=== PATIENT | female | born 1985 | race Two or more races ===

== ENCOUNTER 2016-06-09 17:32 | Inpatient (IN) | payer OTHER ==
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
[2016-06-09 22:24] LABS: BASO % 0.4 % (0.0-2.0); EOS % 0.7 % (0.0-4.0); HEMATOCRIT 38.7 % (34.0-47.0); LYMPH % 30.6 % (20.0-40.0); MEAN CELL VOLUME 84.2 fl (81.0-99.0); MEAN CORPUSCULAR HEMOGLOBIN 27.9 pg (27.0-31.0); MEAN CORPUSCULAR HGB CONC 33.1 g/dL (33.0-37.0); MEAN PLATELET VOLUME 7.7 fl (7.2-11.7); MONO # 0.4 K/uL (0.0-0.8); MONO % 5.7 % (0.0-10.0); NEUT # 4.2 K/uL (1.8-7.0); NEUT % 62.6 % (50.0-75.0); NRBC % 0.2 % (0.0-0.0); WHITE BLOOD COUNT 6.7 K/uL (4.8-10.8)
[2016-06-09 22:42] LABS: ALB/GLOB RATIO 1.3 (1.0-2.1); ALCOHOL SERUM < 10 mg/dl (0-10); ALKALINE PHOSPHATASE 61 U/L (38-126); AST/SGOT 30 U/L (14-36); BILIRUBIN,TOTAL 0.6 mg/dl (0.2-1.3); BLOOD UREA NITROGEN 9 mg/dl (7-17); CALCIUM 9.1 mg/dL (8.4-10.2); CARBON DIOXIDE 22 mmol/L (22-30); CHLORIDE 108 mmol/L (98-107); GFR AFRICAN-AMERICAN > 60; GLUCOSE,RANDOM 75 mg/dL (65-105); SODIUM 144 mmol/l (132-148); TOTAL PROTEIN 7.4 G/DL (6.3-8.2)
[2016-06-09 22:43] LABS: ALT/SGPT < 6 U/L (9-52)
[2016-06-10 03:38] LABS: RBC URINE < 1 /hpf (0-3); URINE BILIRUBIN NEGATIVE (NEGATIVE); URINE BLOOD SMALL (NEGATIVE); URINE COLOR STRAW (YELLOW); URINE GLUCOSE (UA) NEG (Normal); URINE KETONE NEGATIVE (NEGATIVE); URINE LEUKOCYTE ESTERASE NEG Leu/uL (Negative); URINE PROTEIN NEGATIVE (NEGATIVE); URINE UROBILINOGEN 0.2-1.0 mg/dL (0.2-1.0); WBC URINE < 1 /hpf (0-5)
--- NOTE | 2016-06-10 06:02 | ED PDOC ---
- Laboratory Results Result Diagrams: 06/09/16 22:00 06/09/16 22:00 - ECG O2 Sat by Pulse Oximetry: 99 - Progress ED Course And Treament: Case endorsed to technical proposal writer from John FLOR[place] pending [facility] psychiatric screening 2:00 Patient awake, no distress 4:00 Patient awake, no distress Disposition - Clinical Impression Clinical Impression: PTSD (post-traumatic stress disorder) - POA Present On Arrival: None - Disposition Disposition: Transfer of Care Disposition Time: 05:58 Condition: STABLE Patient Signed Over To: Tyler Malhotra Handoff Comments: pending [facility]
--- NOTE | 2016-06-10 06:04 | ED PDOC ---
- Laboratory Results Result Diagrams: 06/09/16 22:00 06/09/16 22:00 - ECG O2 Sat by Pulse Oximetry: 99 Medical Decision Making Medical Decision Making: Patient s/o from Shaina King PA-C at 0600 pending [facility] screening. Patient s/o to Dr. Cleaning at 0700 pending [facility] screening. Scribe Attestation: Documented by Jamila Rivera acting as a scribe for Tyler Malhotra MD. Provider Scribe Attestation: All medical record entries made by the Scribe were at my direction and personally dictated by me. I have reviewed the chart and agree that the record accurately reflects my personal performance of the history, physical exam, medical decision making, and the department course for this patient. I have also personally directed, reviewed, and agree with the discharge instructions and disposition. Disposition - Clinical Impression Clinical Impression: PTSD (post-traumatic stress disorder) - POA Present On Arrival: None - Disposition Disposition: Transfer of Care Disposition Time: 07:00 Condition: STABLE Patient Signed Over To: Joey Cleainng Handoff Comments: pending [facility] screening
[2016-06-10 07:47] VITALS: O2SAT 97
[2016-06-10] MEDS ORDERED: DiphenhydrAMINE 50 mg/ml Inj IM PRN (10:15)
[2016-06-10] MEDS ORDERED: Magnesium Hydroxide Susp 30 ml UD PO PRN (10:15)
[2016-06-10] MEDS ORDERED: Alum-Mag Hydrox-Simethicone Susp (30 mL) PO PRN (10:15)
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
--- NOTE | 2016-06-10 10:33 | RAD ---
HISTORY: medical exam COMPARISON: No prior. FINDINGS: LUNGS: No active pulmonary disease. PLEURA: No significant pleural effusion identified, no pneumothorax apparent. CARDIOVASCULAR: Normal. OSSEOUS STRUCTURES: Incompletely visualize Medina rods. VISUALIZED UPPER ABDOMEN: Normal. OTHER FINDINGS: None. IMPRESSION: No active disease.
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
--- NOTE | 2016-06-10 20:21 | CARD ---
APPROVED REPORT EKG Measurement Heart [id number] <Conclusion> Normal sinus rhythm Rightward axis Borderline ECG
--- NOTE | 2016-06-11 15:45 | PCM.PYCHPN ---
Psychiatric Progress Note - Psychiatric Progress Note Patient seen today, length of contact: Patient evaluated, case discussed with team, chart reviewed, 35 min Patient Chief Complaint: "I'm feeling better" Problems Identified/Issues Discussed: Patient reports improvement in her mood. She denies ideation to harm herself. She is adamant that she did not attempt to kill herself. She reports good sleep /appetite. She is goal oriented. She has been participating in groups and engages appropriately with staff and peers. Medication Change: No Medical Record Reviewed: Yes Mental Status Examination - Cognitive Function Orientation: Person, Place, Situation, Time Memory: Intact Attention: WNL Concentration: WNL Association: [facility] Fund of Knowledge: [facility] - Mood Mood: Anxious - Affect Affect: Broad (Tearful at times) - Speech Speech: Appropriate - Formal Thought Process Formal Thought Process: No Impairment Psychotic Thoughts and Behaviors: No AH/VH/paranoia/delusions - Suicidal Ideation Suicidal Ideation: No - Homicidal Ideation Homicidal Ideation: No Goal/Treatment Plan - Goal/Treatment Plan Need for Continued Stay: Remain at risks for inpatient hospitalization, Severe depression anxiety Progress Toward Problem(s) and Goals/Treatment Plan: 31 yo female w/ h/o depression, presents after she had an episode of self harm, which she reports was not a suicide attempt, she does report feeling depressed at times, with mood fluctuations, patient likely has MDD. Patient reports that her mood has been improving since being admitted. -Continue Zoloft 50 mg PO Daily, r/b/se reviewed; patient given a handout on Zoloft -Individual, group and milieu tx -Likely discharge on Thursday if patient continues to improve clinically Estimated Date of D/C: 06/13/16 - Smoking Cessation Smoking Cessation Initiated: No Reason for not providing: Not indicated
[2016-06-12 08:26] LABS: CHOLESTEROL 132 mg/dL (0-199)
--- NOTE | 2016-06-12 11:53 | PCM.PYCHPN ---
Psychiatric Progress Note - Psychiatric Progress Note Patient seen today, length of contact: Patient evaluated, case discussed with team, chart reviewed, 35 min Patient Chief Complaint: "I'm feeling better" Problems Identified/Issues Discussed: Patient continues to report improvement in mood. She denies ideation to harm herself. She reports good sleep/appetite. She is goal oriented. She has been participating in groups and engages appropriately with staff and peers. Medication Change: No Medical Record Reviewed: Yes Mental Status Examination - Cognitive Function Orientation: Person, Place, Situation, Time Memory: Intact Attention: WNL Concentration: WNL Association: WNL Fund of Knowledge: [facility] Decription of patient's judgement and insights: Good I/J - Mood Mood: Neutral - Affect Affect: Broad - Speech Speech: Appropriate - Formal Thought Process Formal Thought Process: No Impairment Psychotic Thoughts and Behaviors: No AH/VH/paranoia/delusions - Suicidal Ideation Suicidal Ideation: No - Homicidal Ideation Homicidal Ideation: No Goal/Treatment Plan - Goal/Treatment Plan Need for Continued Stay: Severe depression anxiety Progress Toward Problem(s) and Goals/Treatment Plan: 31 yo female w/ h/o depression, presents after she had an episode of self harm, which she reports was not a suicide attempt, she does report feeling depressed at times, with mood fluctuations, patient likely has MDD. Patient reports that her mood continues to improve and denies ideation to harm herself. -Continue Zoloft 50 mg PO Daily, r/b/se reviewed; patient given a handout on Zoloft -Individual, group and milieu tx -Discharge tomorrow with outpatient follow-up Estimated Date of D/C: 06/13/16 - Smoking Cessation Smoking Cessation Initiated: No Reason for not providing: Not indicated
[2016-06-13 06:15] VITALS: BP 88/58; PULSE 80; RESP 18; TEMP 97.2
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
== END 2016-06-13 09:25 | disposition home or self-care (01) | DRG 881 ==
LOC: H.ER 17:32 → H.EROBSV 21:28 → OBSVTOIN 06-10 06:45 → H.ERHOLD 06-10 06:45 → H.STEP 06-10 09:26
PROVIDERS: ADMIT Psychiatry & Neurology Psychiatry; ATTEND Psychiatry & Neurology Psychiatry
PROC: GZHZZZZ Group Psychotherapy (ICD-10-PCS; principal; 2016-06-10)
PROC: GZ58ZZZ Individual Psychotherapy, Cognitive-Behavioral (ICD-10-PCS; 2016-06-10)
DX: F32.9 Major depressive disorder, single episode, unspecified (principal); R45.851 Suicidal ideations; F43.10 Post-traumatic stress disorder, unspecified; Z88.0 Allergy status to penicillin; Z62.810 Personal history of physical and sexual abuse in childhood; Z81.8 Family history of other mental and behavioral disorders